=== PATIENT | female | born 1990 | race American Indian/Alaskan Native ===

== ENCOUNTER 2018-04-28 19:53 | Emergency (ER) | payer MEDICAID, OTHER ==
[2018-04-28 20:01] VITALS: BP 141/73
[2018-04-28] MEDS ORDERED: IBUPROFEN PO ONE (20:48)
--- NOTE | 2018-04-28 20:54 | Emergency Department Report ---
ED ENT HPI - General Chief complaint: Sore Throat Stated complaint: SORE THROAT Time Seen by Provider: 04/28/18 20:40 Source: patient Mode of arrival: Ambulatory Limitations: No Limitations - Related Data Home Medications Medication Instructions Recorded Confirmed Last Taken NIFEdipine*For Tocolysis only* 10 mg PO Q6HR 01/05/14 04/08/16 Unknown [Procardia] Progesterone, Micronized 200 mg VG QPM 01/05/14 04/08/16 Unknown [Prometrium] Previous Rx's Medication Instructions Recorded Last Taken Type Ferrous Sulfate [Feosol 325 MG tab] 325 mg PO TID #90 tablet 01/04/14 Unknown Rx Ibuprofen [Motrin 800 MG tab] 800 mg PO Q8H PRN #90 tablet 01/04/14 Unknown Rx oxyCODONE /ACETAMINOPHEN [Percocet 1 tab PO Q6HR PRN #30 tablet 01/04/14 Unknown Rx 5/325 mg] Multivitamin with Iron 1 each PO DAILY #30 tablet 04/08/16 Unknown Rx [Multivitamins with Iron] oxyCODONE /ACETAMINOPHEN [Percocet 1 tab PO Q6HR PRN #30 tablet 04/08/16 Unknown Rx 5/325] Clindamycin [Clindamycin CAP] 300 mg PO Q8H #30 cap 04/28/18 Unknown Rx Ibuprofen [Motrin 600 MG tab] 600 mg PO Q8H PRN #30 tablet 04/28/18 Unknown Rx Allergies Allergy/AdvReac Type Severity Reaction Status Date / Time apple [Apple] Allergy Itching Verified 12/10/13 10:58 Cephalosporins AdvReac Rash Verified 12/07/13 14:04 Penicillins AdvReac Rash Verified 12/07/13 14:04 ED Dental HPI - General Chief complaint: Sore Throat Stated complaint: SORE THROAT Time Seen by Provider: 04/28/18 20:40 Source: patient Mode of arrival: Ambulatory Limitations: No Limitations - Related Data Home Medications Medication Instructions Recorded Confirmed Last Taken NIFEdipine*For Tocolysis only* 10 mg PO Q6HR 01/05/14 04/08/16 Unknown [Procardia] Progesterone, Micronized 200 mg VG QPM 01/05/14 04/08/16 Unknown [Prometrium] Previous Rx's Medication Instructions Recorded Last Taken Type Ferrous Sulfate [Feosol 325 MG tab] 325 mg PO TID #90 tablet 01/04/14 Unknown Rx Ibuprofen [Motrin 800 MG tab] 800 mg PO Q8H PRN #90 tablet 01/04/14 Unknown Rx oxyCODONE /ACETAMINOPHEN [Percocet 1 tab PO Q6HR PRN #30 tablet 01/04/14 Unknown Rx 5/325 mg] Multivitamin with Iron 1 each PO DAILY #30 tablet 04/08/16 Unknown Rx [Multivitamins with Iron] oxyCODONE /ACETAMINOPHEN [Percocet 1 tab PO Q6HR PRN #30 tablet 04/08/16 Unknown Rx 5/325] Clindamycin [Clindamycin CAP] 300 mg PO Q8H #30 cap 04/28/18 Unknown Rx Ibuprofen [Motrin 600 MG tab] 600 mg PO Q8H PRN #30 tablet 04/28/18 Unknown Rx Allergies Allergy/AdvReac Type Severity Reaction Status Date / Time apple [Apple] Allergy Itching Verified 12/10/13 10:58 Cephalosporins AdvReac Rash Verified 12/07/13 14:04 Penicillins AdvReac Rash Verified 12/07/13 14:04 ED Review of Systems ROS: Stated complaint: SORE THROAT Other details as noted in HPI ED Past Medical Hx - Past Medical History Previous Medical History?: No Hx Hypertension: No Hx Heart Attack/AMI: No Hx Congestive Heart Failure: No Hx Diabetes: No Hx Deep Vein Thrombosis: No Hx Renal Disease: No Hx Sickle Cell Disease: No Hx Seizures: No Hx Asthma: No Hx COPD: No Hx HIV: No - Surgical History Past Surgical History?: Yes Additional Surgical History: x3 - Social History Smoking Status: Never Smoker Substance Use Type: None - Medications Home Medications: Home Medications Medication Instructions Recorded Confirmed Last Taken Type Ferrous Sulfate [Feosol 325 MG tab] 325 mg PO TID #90 tablet 01/04/14 04/08/16 Unknown Rx Ibuprofen [Motrin 800 MG tab] 800 mg PO Q8H PRN #90 tablet 01/04/14 04/08/16 Unknown Rx oxyCODONE /ACETAMINOPHEN [Percocet 1 tab PO Q6HR PRN #30 tablet 01/04/14 04/08/16 Unknown Rx 5/325 mg] NIFEdipine*For Tocolysis only* 10 mg PO Q6HR 01/05/14 04/08/16 Unknown History [Procardia] Progesterone, Micronized 200 mg VG QPM 01/05/14 04/08/16 Unknown History [Prometrium] Multivitamin with Iron 1 each PO DAILY #30 tablet 04/08/16 Unknown Rx [Multivitamins with Iron] oxyCODONE /ACETAMINOPHEN [Percocet 1 tab PO Q6HR PRN #30 tablet 04/08/16 Unknown Rx 5/325] Clindamycin [Clindamycin CAP] 300 mg PO Q8H #30 cap 04/28/18 Unknown Rx Ibuprofen [Motrin 600 MG tab] 600 mg PO Q8H PRN #30 tablet 04/28/18 Unknown Rx ED Physical Exam - General Limitations: No Limitations ED Course Vital Signs 04/28/18 19:59 Temperature 98.5 F Pulse Rate 95 H Respiratory 16 Rate Blood Pressure 141/73 O2 Sat by Pulse 96 Oximetry Critical care attestation.: If time is entered above; I have spent that time in minutes in the direct care of this critically ill patient, excluding procedure time. ED Disposition Clinical Impression: Pharyngitis Qualifiers: Pharyngitis/tonsillitis etiology: unspecified etiology Qualified Code(s): J02.9 - Acute pharyngitis, unspecified Disposition: DC- TO HOME OR SELFCARE Is pt being admited?: No Does the pt Need Aspirin: No Condition: Stable Instructions: Pharyngitis (ED) Additional Instructions: These complete antibiotics as prescribed. Pain medication as needed increase her fluid intake. Prescriptions: Clindamycin [Clindamycin CAP] 300 mg PO Q8H #30 cap Ibuprofen [Motrin 600 MG tab] 600 mg PO Q8H PRN #30 tablet PRN Reason: Pain Referrals: [facility] [Provider Group] - 3-5 Days Forms: Work/School Release Form(ED)
== END 2018-04-28 21:16 | disposition home or self-care (01) ==
LOC: ED 19:53
DX: J02.9 Acute pharyngitis, unspecified (principal)
CPT/HCPCS: 99282

== ENCOUNTER 2018-07-08 21:23 | Emergency (ER) | payer OTHER ==
[2018-07-08 21:41] VITALS: BP 131/84
[2018-07-08] MEDS ORDERED: NACL 0.9% 1000 ML 1,000 ML IV ONE (21:41)
--- NOTE | 2018-07-08 21:43 | Emergency Department Report ---
Chief Complaint: Nausea/Vomiting/Diarrhea Stated Complaint: VOMITING/CHILLS Time Seen by Provider: 07/08/18 21:39 - HPI History of Present Illness: This is a 27 y.o. female that presents with n/v and abdominal pain x 3 days. LMP 06/28/2018, A0. - ROS Review of Systems: nausea, vomiting, and abdominal pain - Exam Vital Signs: Vital Signs 07/08/18 21:38 Temperature 97.9 F Pulse Rate 72 Respiratory 16 Rate Blood Pressure 131/84 O2 Sat by Pulse 99 Oximetry MSE screening note: Focused history and physical exam performed. Due to findings the following was ordered: labs Fast track for further evaluation. ED Disposition for MSE Condition: Stable
[2018-07-08 22:10] LABS: Basophils # (Auto) 0.1 K/mm3 (0.0-0.1); Eosinophils # (Auto) 0.2 K/mm3 (0.0-0.4); Eosinophils % (Auto) 2.7 % (0.0-4.3); Hematocrit 34.5 % (30.3-42.9); Hemoglobin 11.5 gm/dl (10.1-14.3); Lymphocytes # (Auto) 3.2 K/mm3 (1.2-5.4); Lymphocytes % (Auto) 54.2 % (13.4-35.0); Mean Corpuscular HGB Conc 33 % (30-34); Mean Corpuscular Volume 83 fl (79-97); Monocytes # (Auto) 0.3 K/mm3 (0.0-0.8); Monocytes % (Auto) 5.7 % (0.0-7.3); Platelet Count 338 K/mm3 (140-440); Red Blood Count 4.14 M/mm3 (3.65-5.03); Red Cell Distribution Width 14.4 % (13.2-15.2)
[2018-07-08 22:21] LABS: Bilirubin,Urine NEG (Negative); Blood,Urine NEG (Negative); Color,Urine Yellow (Yellow); Mucus,Urine FEW /HPF; Protein,Urine <15 mg/dL mg/dL (Negative); Urobilinogen,Urine < 2.0 mg/dL (<2.0)
[2018-07-08 22:45] LABS: Alanine Aminotransferase 9 units/L (7-56); BUN/Creatinine Ratio 17; Blood Urea Nitrogen 12 mg/dL (7-17); Calcium 8.9 mg/dL (8.4-10.2); Hemolysis Index 73
--- NOTE | 2018-07-08 23:31 | Emergency Department Report ---
ED N/V/D HPI - General Chief complaint: Nausea/Vomiting/Diarrhea Stated complaint: VOMITING/CHILLS Time Seen by Provider: 07/08/18 21:39 Source: patient Mode of arrival: Ambulatory Limitations: No Limitations - History of Present Illness Initial comments: 27-year-old -[place] female presents to the emergency room for nausea vomiting and decreased appetite 2 days. Patient reports no sick contact last vomited at 6 PM. She reports she has some mild sharp pain is intermittent and she says is from her vomiting. Patient denies any abdominal pain denies any fever. Denies any dysuria or urinary frequency or urinary urgency no vaginal discharge or bleeding. MD complaint: nausea, vomiting -: days(s) (2) Description of Vomiting: food contents Associated Abdominal Pain: No Severity: mild Pain Scale: 0 Consistency: intermittent Improves with: none Worsens with: none Associated Symptoms: loss of appetite, nausea/vomiting. denies: chest pain, cough, fever/chills - Related Data Home Medications Medication Instructions Recorded Confirmed Last Taken NIFEdipine*For Tocolysis only* 10 mg PO Q6HR 01/05/14 04/08/16 Unknown [Procardia] Progesterone, Micronized 200 mg VG QPM 01/05/14 04/08/16 Unknown [Prometrium] Previous Rx's Medication Instructions Recorded Last Taken Type Ferrous Sulfate [Feosol 325 MG tab] 325 mg PO TID #90 tablet 01/04/14 Unknown Rx Ibuprofen [Motrin 800 MG tab] 800 mg PO Q8H PRN #90 tablet 01/04/14 Unknown Rx oxyCODONE /ACETAMINOPHEN [Percocet 1 tab PO Q6HR PRN #30 tablet 01/04/14 Unknown Rx 5/325 mg] Multivitamin with Iron 1 each PO DAILY #30 tablet 04/08/16 Unknown Rx [Multivitamins with Iron] oxyCODONE /ACETAMINOPHEN [Percocet 1 tab PO Q6HR PRN #30 tablet 04/08/16 Unknown Rx 5/325] Clindamycin [Clindamycin CAP] 300 mg PO Q8H #30 cap 04/28/18 Unknown Rx Ibuprofen [Motrin 600 MG tab] 600 mg PO Q8H PRN #30 tablet 04/28/18 Unknown Rx Allergies Allergy/AdvReac Type Severity Reaction Status Date / Time apple [Apple] Allergy Itching Verified 08/15/14 10:58 Cephalosporins AdvReac Rash Verified 12/07/13 14:04 Penicillins AdvReac Rash Verified 12/07/13 14:04 ED Review of Systems ROS: Stated complaint: VOMITING/CHILLS Other details as noted in HPI Comment: All other systems reviewed and negative Constitutional: denies: chills, fever Eyes: denies: eye pain, eye discharge, vision change ENT: denies: ear pain, throat pain Respiratory: denies: cough, shortness of breath, wheezing Cardiovascular: denies: chest pain, palpitations Gastrointestinal: nausea, vomiting Genitourinary: denies: urgency, dysuria, discharge Musculoskeletal: denies: back pain, joint swelling, arthralgia Skin: denies: rash, lesions Neurological: denies: headache, weakness, paresthesias ED Past Medical Hx - Past Medical History Hx Hypertension: No Hx Heart Attack/AMI: No Hx Congestive Heart Failure: No Hx Diabetes: No Hx Deep Vein Thrombosis: No Hx Renal Disease: No Hx Sickle Cell Disease: No Hx Seizures: No Hx Asthma: No Hx COPD: No Hx HIV: No - Surgical History Additional Surgical History: x3 - Social History Smoking Status: Never Smoker Substance Use Type: None - Medications Home Medications: Home Medications Medication Instructions Recorded Confirmed Last Taken Type Ferrous Sulfate [Feosol 325 MG tab] 325 mg PO TID #90 tablet 01/04/14 04/08/16 Unknown Rx Ibuprofen [Motrin 800 MG tab] 800 mg PO Q8H PRN #90 tablet 01/04/14 04/08/16 Unknown Rx oxyCODONE /ACETAMINOPHEN [Percocet 1 tab PO Q6HR PRN #30 tablet 01/04/14 04/08/16 Unknown Rx 5/325 mg] NIFEdipine*For Tocolysis only* 10 mg PO Q6HR 01/05/14 04/08/16 Unknown History [Procardia] Progesterone, Micronized 200 mg VG QPM 01/05/14 04/08/16 Unknown History [Prometrium] Multivitamin with Iron 1 each PO DAILY #30 tablet 04/08/16 Unknown Rx [Multivitamins with Iron] oxyCODONE /ACETAMINOPHEN [Percocet 1 tab PO Q6HR PRN #30 tablet 04/08/16 Unknown Rx 5/325] Clindamycin [Clindamycin CAP] 300 mg PO Q8H #30 cap 04/28/18 Unknown Rx Ibuprofen [Motrin 600 MG tab] 600 mg PO Q8H PRN #30 tablet 04/28/18 Unknown Rx ED Physical Exam - General Limitations: No Limitations General appearance: alert, in no apparent distress - Head Head exam: Present: atraumatic, normocephalic - Eye Eye exam: Present: normal appearance - ENT ENT exam: Present: mucous membranes moist - Neck Neck exam: Present: normal inspection - Respiratory Respiratory exam: Present: normal lung sounds bilaterally. Absent: respiratory distress - Cardiovascular Cardiovascular Exam: Present: regular rate, normal rhythm. Absent: systolic murmur, diastolic murmur, rubs, gallop - GI/Abdominal GI/Abdominal exam: Present: soft, normal bowel sounds - Extremities Exam Extremities exam: Present: normal inspection - Back Exam Back exam: Present: normal inspection - Neurological Exam Neurological exam: Present: alert, oriented X3 - Psychiatric Psychiatric exam: Present: normal affect, normal mood - Skin Skin exam: Present: warm, dry, intact, normal color. Absent: rash ED Course Vital Signs 07/08/18 21:38 Temperature 97.9 F Pulse Rate 72 Respiratory 16 Rate Blood Pressure 131/84 O2 Sat by Pulse 99 Oximetry - Reevaluation(s) Reevaluation #1: 07/09/18 00:33 Patient has been able to drink fluids without having nausea and vomiting during her ER visit. ED Medical Decision Making - Lab Data Result diagrams: 07/08/18 22:01 07/08/18 22:01 Laboratory Tests 07/08/18 07/08/18 07/08/18 21:51 22:01 22:01 WBC 5.8 RBC 4.14 Hgb 11.5 Hct 34.5 MCV 83 MCH 28 MCHC 33 RDW 14.4 Plt Count 338 Lymph % (Auto) 54.2 H [place] % (Auto) 5.7 Eos % (Auto) 2.7 Baso % (Auto) 1.0 Lymph # 3.2 [place] # 0.3 Eos # 0.2 Baso # 0.1 Seg Neutrophils % 36.4 L Seg Neutrophils # 2.1 Sodium 137 Potassium 4.6 Chloride 101.8 Carbon Dioxide 22 Anion Gap 18 BUN 12 Creatinine 0.7 Estimated GFR > 60 BUN/Creatinine Ratio 17 Glucose 91 Calcium 8.9 Total Bilirubin 0.20 AST 16 ALT 9 Alkaline Phosphatase 27 L Total Protein 7.2 Albumin 4.0 Albumin/Globulin Ratio 1.3 Lipase HCG, Qual Urine Color Yellow Urine Turbidity Clear Urine pH 5.0 Ur Specific [place] 1.030 Urine Protein <15 mg/dl Urine Glucose (UA) Neg Urine Ketones Neg Urine Blood Neg Urine Nitrite Neg Urine Bilirubin Neg Urine Urobilinogen < 2.0 Ur Leukocyte Esterase Neg Urine WBC (Auto) 4.0 Urine RBC (Auto) 4.0 U Epithel Cells (Auto) 1.0 Urine Mucus Few 07/08/18 07/08/18 22:01 22:01 WBC RBC Hgb Hct MCV MCH MCHC RDW Plt Count Lymph % (Auto) [place] % (Auto) Eos % (Auto) Baso % (Auto) Lymph # [place] # Eos # Baso # Seg Neutrophils % Seg Neutrophils # Sodium Potassium Chloride Carbon Dioxide Anion Gap BUN Creatinine Estimated GFR BUN/Creatinine Ratio Glucose Calcium Total Bilirubin AST ALT Alkaline Phosphatase Total Protein Albumin Albumin/Globulin Ratio Lipase 19 HCG, Qual Negative Urine Color Urine Turbidity Urine pH Ur Specific [place] Urine Protein Urine Glucose (UA) Urine Ketones Urine Blood Urine Nitrite Urine Bilirubin Urine Urobilinogen Ur Leukocyte Esterase Urine WBC (Auto) Urine RBC (Auto) U Epithel Cells (Auto) Urine Mucus - Medical Decision Making Patient has been evaluated by this provider in [facility]. Labs are within normal limits. Patient reports she has had no nausea and vomiting since being here in the e mergency room. Patient was able to complete a by mouth challenge without any nausea vomiting. Patient be discharged home instructions to increase her fluids and advance her diet as tolerated. Critical care attestation.: If time is entered above; I have spent that time in minutes in the direct care of this critically ill patient, excluding procedure time. ED Disposition Clinical Impression: Nausea and vomiting Qualifiers: Vomiting type: unspecified Vomiting Intractability: intractable Qualified Code(s): R11.2 - Nausea with vomiting, unspecified Disposition: DC-01 TO HOME OR SELFCARE Is pt being admited?: No Does the pt Need Aspirin: No Condition: Stable Instructions: Acute Nausea and Vomiting (ED) Additional Instructions: Continue with fluid intake and advance her diet as tolerated. If his symptoms persist or gets worse please follow back up in the emergency room and get primary care provider. Referrals: DON CHARLES MD [Primary Care Provider] - 3-5 Days Forms: Work/School Release Form(ED)
== END 2018-07-09 00:37 | disposition home or self-care (01) ==
LOC: ED 21:23
DX: R11.2 Nausea with vomiting, unspecified (principal); R63.0 Anorexia; Z79.899 Other long term (current) drug therapy; Z91.018 Allergy to other foods; Z88.0 Allergy status to penicillin; Z88.8 Allergy status to other drugs, medicaments and biological substances
CPT/HCPCS: 36415; 80053; 81001; 83690; 84703; 85025; 99283

== ENCOUNTER 2018-08-20 13:41 | Emergency (ER) | payer OTHER ==
--- NOTE | 2018-08-20 14:03 | Emergency Department Report ---
Blank Doc - Documentation Documentation: This is a 28-year-old female that presents with dizziness and light headiness. This initial assessment/diagnostic orders/clinical plan/treatment(s) is/are subject to change based on patient's health status, clinical progression and re- assessment by fellow clinical providers in the ED. Further treatment and workup at subsequent clinical providers discretion. Patient/guardians urged not to elope from the ED as their condition may be serious if not clinically assessed and managed. Initial orders include: 1- Patient sent to [facility] for further evaluation and treatment 2- labs 3- UA
[2018-08-20 14:21] LABS: Basophils % (Auto) 0.7 % (0.0-1.8); Eosinophils # (Auto) 0.1 K/mm3 (0.0-0.4); Eosinophils % (Auto) 1.8 % (0.0-4.3); Hematocrit 37.2 % (30.3-42.9); Hemoglobin 12.1 gm/dl (10.1-14.3); Lymphocytes # (Auto) 2.4 K/mm3 (1.2-5.4); Lymphocytes % (Auto) 40.7 % (13.4-35.0); Mean Corpuscular HGB Conc 33 % (30-34); Mean Corpuscular Volume 83 fl (79-97); Monocytes # (Auto) 0.5 K/mm3 (0.0-0.8); Monocytes % (Auto) 8.1 % (0.0-7.3); Platelet Count 304 K/mm3 (140-440); Red Blood Count 4.47 M/mm3 (3.65-5.03)
[2018-08-20 14:44] LABS: Alanine Aminotransferase 8 units/L (7-56); Albumin 4.4 g/dL (3.9-5); BUN/Creatinine Ratio 22; Blood Urea Nitrogen 13 mg/dL (7-17); Calcium 8.9 mg/dL (8.4-10.2); Hemolysis Index 2
[2018-08-20 14:49] LABS: Bilirubin,Direct < 0.2 mg/dL (0-0.2)
--- NOTE | 2018-08-20 15:44 | Emergency Department Report ---
ED Dizziness HPI - General Chief Complaint: Dizziness Stated Complaint: DIZZY/LIGHT HEADED/CONFUSION Time Seen by Provider: 08/20/18 14:02 Source: patient Mode of arrival: Ambulatory Limitations: No Limitations - History of Present Illness Initial Comments: Eveline is a 28 yo healthy female who presents with lightheadedness this morning. No headache no pain. Improves with rest, eating, hydration. Both parents have hx of diabetes. 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 Complaint: dizziness, lightheadedness -: Gradual Timing: gradual onset Description: lightheadedness History of Same: No Severity: mild Improves With: rest, other (eating, drinking) - Related Data Home Medications Medication Instructions Recorded Confirmed Last Taken NIFEdipine*For Tocolysis only* 10 mg PO Q6HR 01/05/14 04/08/16 Unknown [Procardia] Progesterone, Micronized 200 mg VG QPM 01/05/14 04/08/16 Unknown [Prometrium] Previous Rx's Medication Instructions Recorded Last Taken Type Ferrous Sulfate [Feosol 325 MG tab] 325 mg PO TID #90 tablet 01/04/14 Unknown Rx Ibuprofen [Motrin 800 MG tab] 800 mg PO Q8H PRN #90 tablet 01/04/14 Unknown Rx oxyCODONE /ACETAMINOPHEN [Percocet 1 tab PO Q6HR PRN #30 tablet 01/04/14 Unknown Rx 5/325 mg] Multivitamin with Iron 1 each PO DAILY #30 tablet 04/08/16 Unknown Rx [Multivitamins with Iron] oxyCODONE /ACETAMINOPHEN [Percocet 1 tab PO Q6HR PRN #30 tablet 04/08/16 Unknown Rx 5/325] Clindamycin [Clindamycin CAP] 300 mg PO Q8H #30 cap 04/28/18 Unknown Rx Ibuprofen [Motrin 600 MG tab] 600 mg PO Q8H PRN #30 tablet 04/28/18 Unknown Rx Allergies Allergy/AdvReac Type Severity Reaction Status Date / Time apple [Apple] Allergy Itching Verified 12/10/13 10:58 Cephalosporins AdvReac Rash Verified 12/07/13 14:04 Penicillins AdvReac Rash Verified 12/07/13 14:04 ED Review of Systems ROS: Stated complaint: DIZZY/LIGHT HEADED/CONFUSION Other details as noted in HPI Comment: All other systems reviewed and negative Constitutional: malaise Cardiovascular: denies: chest pain Endocrine: denies: flushing ED Past Medical Hx - Past Medical History Previous Medical History?: No Hx Hypertension: No Hx Heart Attack/AMI: No Hx Congestive Heart Failure: No Hx Diabetes: No Hx Deep Vein Thrombosis: No Hx Renal Disease: No Hx Sickle Cell Disease: No Hx Seizures: No Hx Asthma: No Hx COPD: No Hx HIV: No - Surgical History Past Surgical History?: Yes Additional Surgical History: x3 - Family History Family history: diabetes - Social History Smoking Status: Never Smoker Substance Use Type: None - Medications Home Medications: Home Medications Medication Instructions Recorded Confirmed Last Taken Type Ferrous Sulfate [Feosol 325 MG tab] 325 mg PO TID #90 tablet 01/04/14 04/08/16 Unknown Rx Ibuprofen [Motrin 800 MG tab] 800 mg PO Q8H PRN #90 tablet 01/04/14 04/08/16 Unknown Rx oxyCODONE /ACETAMINOPHEN [Percocet 1 tab PO Q6HR PRN #30 tablet 01/04/14 04/08/16 Unknown Rx 5/325 mg] NIFEdipine*For Tocolysis only* 10 mg PO Q6HR 01/05/14 04/08/16 Unknown History [Procardia] Progesterone, Micronized 200 mg VG QPM 01/05/14 04/08/16 Unknown History [Prometrium] Multivitamin with Iron 1 each PO DAILY #30 tablet 04/08/16 Unknown Rx [Multivitamins with Iron] oxyCODONE /ACETAMINOPHEN [Percocet 1 tab PO Q6HR PRN #30 tablet 04/08/16 Unknown Rx 5/325] Clindamycin [Clindamycin CAP] 300 mg PO Q8H #30 cap 04/28/18 Unknown Rx Ibuprofen [Motrin 600 MG tab] 600 mg PO Q8H PRN #30 tablet 04/28/18 Unknown Rx ED Physical Exam - General Limitations: No Limitations General appearance: alert, in no apparent distress - Head Head exam: Present: atraumatic, normocephalic - Eye Eye exam: Present: normal appearance - ENT ENT exam: Present: mucous membranes moist - Neck Neck exam: Present: normal inspection, full ROM - Respiratory Respiratory exam: Present: normal lung sounds bilaterally. Absent: respiratory distress, wheezes, rales, rhonchi - Cardiovascular Cardiovascular Exam: Present: regular rate, normal rhythm, normal heart sounds. Absent: systolic murmur, diastolic murmur, rubs, gallop - GI/Abdominal GI/Abdominal exam: Present: soft, normal bowel sounds. Absent: distended, tende rness, guarding, rebound - Extremities Exam Extremities exam: Present: normal inspection - Back Exam Back exam: Present: normal inspection - Neurological Exam Neurological exam: Present: alert, oriented X3 - Psychiatric Psychiatric exam: Present: normal affect, normal mood - Skin Skin exam: Present: warm, dry, intact, normal color. Absent: rash ED Medical Decision Making - Lab Data Result diagrams: 08/20/18 14:13 08/20/18 14:13 Laboratory Results - last 24 hr 08/20/18 08/20/18 08/20/18 14:13 14:13 14:13 WBC 5.8 RBC 4.47 Hgb 12.1 Hct 37.2 MCV 83 MCH 27 L MCHC 33 RDW 14.0 Plt Count 304 Lymph % (Auto) 40.7 H [place] % (Auto) 8.1 H Eos % (Auto) 1.8 Baso % (Auto) 0.7 Lymph # 2.4 [place] # 0.5 Eos # 0.1 Baso # 0.0 Seg Neutrophils % 48.7 Seg Neutrophils # 2.8 Sodium 144 Potassium 4.1 Chloride 109.5 H Carbon Dioxide 26 Anion Gap 13 BUN 13 Creatinine 0.6 L Estimated GFR > 60 BUN/Creatinine Ratio 22 Glucose 91 Calcium 8.9 Total Bilirubin 0.50 Direct Bilirubin < 0.2 Indirect Bilirubin 0.3 AST 11 ALT 8 Alkaline Phosphatase 31 L Total Protein 7.7 Albumin 4.4 Albumin/Globulin Ratio 1.3 HCG, Qual Negative - Medical Decision Making Labs reviewed, no indication of anemia, hyperglycemia, MICKI or Neurologically intact, intracranial process such as CVA or pseudotumor cerebri on likely Recommended outpatient evaluation by primary care physician. No evidence of acute emergent condition. Critical care attestation.: If time is entered above; I have spent that time in minutes in the direct care of this critically ill patient, excluding procedure time. ED Disposition Clinical Impression: Lightheadedness Disposition: DC-01 TO HOME OR SELFCARE Is pt being admited?: No Does the pt Need Aspirin: No Condition: Stable Instructions: Lightheadedness (ED) Referrals: [facility] [Outside] - 3-5 Days
[2018-08-20 15:50] VITALS: BP 117/71
== END 2018-08-20 15:53 | disposition home or self-care (01) ==
LOC: ED 13:41
DX: R42 Dizziness and giddiness (principal); Z88.1 Allergy status to other antibiotic agents; Z88.0 Allergy status to penicillin; Z91.018 Allergy to other foods
CPT/HCPCS: 36415; 80048; 80076; 84703; 85025; 99283

== ENCOUNTER 2018-11-20 23:17 | Emergency (ER) | payer OTHER ==
[2018-11-20 23:40] VITALS: BP 144/79
--- NOTE | 2018-11-21 01:14 | Cat Scan Report ---
CT head/brain wo con INDICATION / CLINICAL INFORMATION: headache, trauma and loc. TECHNIQUE: All CT scans at this location are performed using CT dose reduction for ALARA by means of automated e xposure control. COMPARISON: None available. FINDINGS: Ventricle size is normal. No mass or mass effect is seen. There is no evidence of intracranial hemorr apollo. No obvious area of infarction is identified. Visualized paranasal sinuses are clear. No fractur e is seen. IMPRESSION: No acute findings Signer Name: Crispin Hill MD FACR Signed: 11/21/2018 1:10 AM Workstation Name: [id number]
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
== END 2018-11-21 01:40 | disposition home or self-care (01) ==
LOC: ED 23:17
DX: S09.90XA Unspecified injury of head, initial encounter (principal); Z79.899 Other long term (current) drug therapy; Z88.1 Allergy status to other antibiotic agents; Z88.0 Allergy status to penicillin; Z91.018 Allergy to other foods; V49.9XXA Car occupant (driver) (passenger) injured in unspecified traffic accident, initial encounter; Y93.89 Activity, other specified; Y92.410 Unspecified street and highway as the place of occurrence of the external cause; Y99.8 Other external cause status
CPT/HCPCS: 70450

== ENCOUNTER 2018-11-22 21:17 | Emergency (ER) | payer OTHER ==
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
[2018-11-22 21:28] VITALS: BP 124/73
--- NOTE | 2018-11-22 22:05 | XRay Report ---
HISTORY: Right hand pain COMPARISON: None. TECHNIQUE: AP, lateral and both obliques FINDINGS: Bones: Fracture of the distal phalanx first digit is present with slight displacement.. Joint spaces: Maintained. Soft tissues: No significant abnormality. Additional findings: None. IMPRESSION: 1. Fracture first digit right hand involving the distal phalanx.. Signer Name: Jai Kelly MD Signed: 11/22/2018 10:01 PM Workstation Name: [id number]
[2018-11-22] MEDS ORDERED: NORCO 5/325 PO STA (23:36)
--- NOTE | 2018-11-22 23:45 | Emergency Department Report ---
Upper Extremity - HPI Chief Complaint: Extremity Injury, Upper Stated Complaint: RIGHT HAND SWOLLEN Time Seen by Provider: 11/22/18 21:26 ED Review of Systems ROS: Stated complaint: RIGHT HAND SWOLLEN Other details as noted in HPI ED Past Medical Hx - Past Medical History Previous Medical History?: No Hx Hypertension: No Hx Heart Attack/AMI: No Hx Congestive Heart Failure: No Hx Diabetes: No Hx Deep Vein Thrombosis: No Hx Renal Disease: No Hx Sickle Cell Disease: No Hx Seizures: No Hx Asthma: No Hx COPD: No Hx HIV: No - Surgical History Past Surgical History?: Yes Additional Surgical History: x3 - Social History Smoking Status: Never Smoker Substance Use Type: None - Medications Home Medications: Home Medications Medication Instructions Recorded Confirmed Last Taken Type Ferrous Sulfate [Feosol 325 MG tab] 325 mg PO TID #90 tablet 01/04/14 04/08/16 Unknown Rx Ibuprofen [Motrin 800 MG tab] 800 mg PO Q8H PRN #90 tablet 01/04/14 04/08/16 Unknown Rx oxyCODONE /ACETAMINOPHEN [Percocet 1 tab PO Q6HR PRN #30 tablet 01/04/14 04/08/16 Unknown Rx 5/325 mg] NIFEdipine*For Tocolysis only* 10 mg PO Q6HR 01/05/14 04/08/16 Unknown History [Procardia] Progesterone, Micronized 200 mg VG QPM 01/05/14 04/08/16 Unknown History [Prometrium] Multivitamin with Iron 1 each PO DAILY #30 tablet 04/08/16 Unknown Rx [Multivitamins with Iron] oxyCODONE /ACETAMINOPHEN [Percocet 1 tab PO Q6HR PRN #30 tablet 04/08/16 Unknown Rx 5/325] Clindamycin [Clindamycin CAP] 300 mg PO Q8H #30 cap 04/28/18 Unknown Rx Ibuprofen [Motrin 600 MG tab] 600 mg PO Q8H PRN #30 tablet 04/28/18 Unknown Rx Ketorolac [Toradol] 10 mg PO Q6H PRN #15 tablet 11/21/18 Unknown Rx methOCARBAMOL [Robaxin] 750 mg PO Q8H PRN #21 tablet 11/21/18 Unknown Rx Acetaminophen/Codeine [Tylenol 1 tab PO Q6H PRN #10 tab 11/22/18 Unknown Rx /Codeine # 3 tab] Upper Extremity Exam - Exam General: Vital signs noted. No distress. Alert and acting appropriately. ED Course Vital Signs 11/22/18 21:26 Temperature 98.5 F Pulse Rate 95 H Respiratory 18 Rate Blood Pressure 124/73 O2 Sat by Pulse 98 Oximetry Critical care attestation.: If time is entered above; I have spent that time in minutes in the direct care of this critically ill patient, excluding procedure time. ED Disposition Disposition: DC-01 TO HOME OR SELFCARE Condition: Stable Instructions: Finger Fracture (ED) Prescriptions: Acetaminophen/Codeine [Tylenol /Codeine # 3 tab] 1 tab PO Q6H PRN #10 tab PRN Reason: finger pain Referrals: [facility] JEFFERS MD [Staff Physician] - 3-5 Days
== END 2018-11-23 00:17 | disposition home or self-care (01) ==
LOC: ED 21:17
DX: S62.521A Displaced fracture of distal phalanx of right thumb, initial encounter for closed fracture (principal); V89.2XXA Person injured in unspecified motor-vehicle accident, traffic, initial encounter; Y93.89 Activity, other specified; Y92.488 Other paved roadways as the place of occurrence of the external cause; Y99.8 Other external cause status
CPT/HCPCS: 99283

== ENCOUNTER 2019-05-07 20:19 | Emergency (ER) | payer OTHER ==
[2019-05-07 22:12] VITALS: BP 127/74
--- NOTE | 2019-05-07 22:14 | Event Note ---
ED Screening Note Date of service: 05/07/19 Time: 22:09 ED Screening Note: 28 y/o female comes for SOB and cough with chest pain with cough body aches. No fevers. Taking OTC robitussin. Temp 100.9 at time of exam. This initial assessment/diagnostic orders/clinical plan/treatment(s) is/are sub ject to change based on patients health status, clinical progression and re- assessment by fellow clinical providers in the ED. Further treatment and workup at subsequent clinical providers discretion. Patient/guardian urged not to elope from the ED as their condition may be serious if not clinically assessed and managed. Initial orders include: CXR
--- NOTE | 2019-05-07 22:45 | XRay Report ---
CHEST 2 VIEWS INDICATION / CLINICAL INFORMATION: sob,cough and rales. COMPARISON: None available. FINDINGS: SUPPORT DEVICES: None. HEART / MEDIASTINUM: No significant abnormality. LUNGS / PLEURA: There is mild bibasilar parenchymal disease, slightly more prominent on the right. It is difficult to determine whether this is atelectasis or pneumonia. Upper lung snow are clear. No visible pleural effusion or interstitial pulmonary edema. No pneumothorax. ADDITIONAL FINDINGS: No significant additional findings. IMPRESSION: 1. Mild bibasilar parenchymal disease. This could represent pneumonia and clinical follow-up is recom mended. Signer Name: Kitty Lott MD Signed: 05/07/2019 10:41 PM Workstation Name: [id number]
--- NOTE | 2019-05-08 00:18 | Emergency Department Report ---
- General Chief Complaint: Upper Respiratory Infection Stated Complaint: SOB/FEVER/COLD SX Time Seen by Provider: 05/07/19 22:09 Source: patient Mode of arrival: Ambulatory Limitations: No Limitations - History of Present Illness Initial Comments: Patient is a 28-year-old female who is presenting with a cough and congestion for approximately 2 weeks. Patient has had some mild shortness of breath. MAXIMUM TEMPERATURE at home was 102. Patient states that she has some chest discomfort with a cough. Cough is productive of yellow sputum. Patient denies nausea vomiting and diarrhea next stiffness or headache. Patient also states is no body aches. - Related Data Home Medications Medication Instructions Recorded Confirmed Last Taken NIFEdipine*For Tocolysis only* 10 mg PO Q6HR 01/05/14 04/08/16 Unknown [Procardia] Progesterone, Micronized 200 mg VG QPM 01/05/14 04/08/16 Unknown [Prometrium] Previous Rx's Medication Instructions Recorded Last Taken Type Ferrous Sulfate [Feosol 325 MG tab] 325 mg PO TID #90 tablet 01/04/14 Unknown Rx Ibuprofen [Motrin 800 MG tab] 800 mg PO Q8H PRN #90 tablet 01/04/14 Unknown Rx oxyCODONE /ACETAMINOPHEN [Percocet 1 tab PO Q6HR PRN #30 tablet 01/04/14 Unknown Rx 5/325 mg] Multivitamin with Iron 1 each PO DAILY #30 tablet 04/08/16 Unknown Rx [Multivitamins with Iron] oxyCODONE /ACETAMINOPHEN [Percocet 1 tab PO Q6HR PRN #30 tablet 04/08/16 Unknown Rx 5/325] Clindamycin [Clindamycin CAP] 300 mg PO Q8H #30 cap 04/28/18 Unknown Rx Ibuprofen [Motrin 600 MG tab] 600 mg PO Q8H PRN #30 tablet 04/28/18 Unknown Rx Ketorolac [Toradol] 10 mg PO Q6H PRN #15 tablet 11/21/18 Unknown Rx methOCARBAMOL [Robaxin] 750 mg PO Q8H PRN #21 tablet 11/21/18 Unknown Rx Acetaminophen/Codeine [Tylenol 1 tab PO Q6H PRN #10 tab 11/22/18 Unknown Rx /Codeine # 3 tab] Albuterol INH(or & Nicu Only) 2 puff IH QID PRN #1 inhalation 05/08/19 Unknown Rx [ProAir HFA Inhaler] Benzonatate [Tessalon Perles] 100 mg PO Q8HR #10 capsule 05/08/19 Unknown Rx DOXYCYCLINE Hyclate [Vibramycin 100 mg PO Q12HR #20 capsule 05/08/19 Unknown Rx CAP] Fluticasone [Flonase] 1 spray NS QDAY #1 bottle 05/08/19 Unknown Rx predniSONE [Deltasone] 20 mg PO QDAY #5 tab 05/08/19 Unknown Rx Allergies Allergy/AdvReac Type Severity Reaction Status Date / Time apple [Apple] Allergy Itching Verified 12/10/13 10:58 clindamycin Allergy Itching Verified 11/20/18 23:25 Cephalosporins AdvReac Rash Verified 12/07/13 14:04 Penicillins AdvReac Rash Verified 12/07/13 14:04 ED Review of Systems ROS: Stated complaint: SOB/FEVER/COLD SX Other details as noted in HPI Comment: All other systems reviewed and negative ED Past Medical Hx - Past Medical History Previous Medical History?: No Hx Hypertension: No Hx Heart Attack/AMI: No Hx Congestive Heart Failure: No Hx Diabetes: No Hx Deep Vein Thrombosis: No Hx Renal Disease: No Hx Sickle Cell Disease: No Hx Seizures: No Hx Asthma: No Hx COPD: No Hx HIV: No - Surgical History Past Surgical History?: Yes Additional Surgical History: x3 - Social History Smoking Status: Never Smoker Substance Use Type: None - Medications Home Medications: Home Medications Medication Instructions Recorded Confirmed Last Taken Type Ferrous Sulfate [Feosol 325 MG tab] 325 mg PO TID #90 tablet 01/04/14 04/08/16 Unknown Rx Ibuprofen [Motrin 800 MG tab] 800 mg PO Q8H PRN #90 tablet 01/04/14 04/08/16 Unknown Rx oxyCODONE /ACETAMINOPHEN [Percocet 1 tab PO Q6HR PRN #30 tablet 01/04/14 04/08/16 Unknown Rx 5/325 mg] NIFEdipine*For Tocolysis only* 10 mg PO Q6HR 01/05/14 04/08/16 Unknown History [Procardia] Progesterone, Micronized 200 mg VG QPM 01/05/14 04/08/16 Unknown History [Prometrium] Multivitamin with Iron 1 each PO DAILY #30 tablet 04/08/16 Unknown Rx [Multivitamins with Iron] oxyCODONE /ACETAMINOPHEN [Percocet 1 tab PO Q6HR PRN #30 tablet 04/08/16 Unknown Rx 5/325] Clindamycin [Clindamycin CAP] 300 mg PO Q8H #30 cap 04/28/18 Unknown Rx Ibuprofen [Motrin 600 MG tab] 600 mg PO Q8H PRN #30 tablet 04/28/18 Unknown Rx Ketorolac [Toradol] 10 mg PO Q6H PRN #15 tablet 11/21/18 Unknown Rx methOCARBAMOL [Robaxin] 750 mg PO Q8H PRN #21 tablet 11/21/18 Unknown Rx Acetaminophen/Codeine [Tylenol 1 tab PO Q6H PRN #10 tab 11/22/18 Unknown Rx /Codeine # 3 tab] Albuterol INH(or & Nicu Only) 2 puff IH QID PRN #1 inhalation 05/08/19 Unknown Rx [ProAir HFA Inhaler] Benzonatate [Tessalon Perles] 100 mg PO Q8HR #10 capsule 05/08/19 Unknown Rx DOXYCYCLINE Hyclate [Vibramycin 100 mg PO Q12HR #20 capsule 05/08/19 Unknown Rx CAP] Fluticasone [Flonase] 1 spray NS QDAY #1 bottle 05/08/19 Unknown Rx predniSONE [Deltasone] 20 mg PO QDAY #5 tab 05/08/19 Unknown Rx ED Physical Exam - General Limitations: No Limitations General appearance: alert, in no apparent distress - Head Head exam: Present: atraumatic, normocephalic - Eye Eye exam: Present: normal appearance. Absent: PERRL, EOMI - ENT ENT exam: Present: mucous membranes moist - Neck Neck exam: Present: normal inspection - Respiratory Respiratory exam: Present: normal lung sounds bilaterally. Absent: respiratory distress, wheezes, rales, rhonchi - Cardiovascular Cardiovascular Exam: Present: normal rhythm, tachycardia, normal heart sounds. Absent: systolic murmur, diastolic murmur, rubs, gallop - GI/Abdominal GI/Abdominal exam: Present: soft, normal bowel sounds. Absent: distended, tenderness, guarding, rebound - Extremities Exam Extremities exam: Present: normal inspection - Back Exam Back exam: Present: normal inspection - Neurological Exam Neurological exam: Present: alert, oriented X3 - Psychiatric Psychiatric exam: Present: normal affect, normal mood - Skin Skin exam: Present: warm, dry, intact, normal color. Absent: rash ED Course Vital Signs 05/07/19 05/07/19 05/07/19 20:35 22:12 22:14 Temperature 102.3 F H 100.9 F H Pulse Rate 117 H 105 H Respiratory 20 Rate Blood Pressure 127/74 O2 Sat by Pulse 96 Oximetry ED Medical Decision Making - Radiology Data Patient: GABRIEL HERNANDEZ MR#: [id number] : 1990 Acct:[id number] Age/Sex: 28 / F ADM Date: 05/07/19 Loc: ED Attending Dr: Ordering Physician: AFIA SANCHEZ Date of Service: 05/07/19 Procedure(s): XR chest routine 2V Accession Number(s): [id number] cc: AFIA SANCHEZ Fluoro Time In Minutes: CHEST 2 VIEWS INDICATION / CLINICAL INFORMATION: sob,cough and rales. COMPARISON: None available. FINDINGS: SUPPORT DEVICES: None. HEART / MEDIASTINUM: No significant abnormality. LUNGS / PLEURA: There is mild bibasilar parenchymal disease, slightly more prominent on the right. It is difficult to determine whether this is atelectasis or pneumonia. Upper lung snow are clear. No visible pleural effusion or interstitial pulmonary edema. No pneumothorax. ADDITIONAL FINDINGS: No significant additional findings. IMPRESSION: 1. Mild bibasilar parenchymal disease. This could represent pneumonia and clinical follow-up is recommended. Signer Name: Kitty Lott MD Signed: 05/07/2019 10:41 PM Workstation Name: [id number] - Medical Decision Making Patient is a 28-year-old Female who presented with 2 weeks of a productive cough with fever. Chest x-ray is consistent with a pneumonia the bilateral lower lobes right greater than left. Patient be started on doxycycline as well as medication for symptomatic relief and should be discharged home. Critical care attestation.: If time is entered above; I have spent that time in minutes in the direct care of this critically ill patient, excluding procedure time. ED Disposition Clinical Impression: Pneumonia Qualifiers: Pneumonia type: due to unspecified organism Laterality: bilateral Lung location: lower lobe of lung Qualified Code(s): J18.9 - Pneumonia, unspecified organism Disposition: - TO HOME OR SELFCARE Is pt being admited?: No Does the pt Need Aspirin: No Condition: Stable Instructions: Bacterial Pneumonia (ED) Referrals: PRIMARY CARE, [Primary Care Provider] - 3-5 Days Time of Disposition: 00:17
== END 2019-05-08 00:53 | disposition home or self-care (01) ==
LOC: ED 20:19
DX: J18.9 Pneumonia, unspecified organism (principal); Z98.890 Other specified postprocedural states; Z79.1 Long term (current) use of non-steroidal anti-inflammatories (NSAID); Z79.899 Other long term (current) drug therapy
CPT/HCPCS: 71046

== ENCOUNTER 2020-10-25 09:59 | Outpatient (CLI) | payer OTHER ==
--- NOTE | 2020-10-25 12:15 | Ultrasound Report ---
ULTRASOUND BREAST LEFT LIMITED, 10/25/2020 CLINICAL INFORMATION / INDICATION: Patient states she has a left breast lump and pain, but does feel like the palpable lump has decreased in size recently. TECHNIQUE: Targeted ultrasound evaluation was performed of the area of interest. COMPARISON: None FINDINGS: Sonographic evaluation of the left breast in the area of the pain and palpable lump which corresponds to the 11-12:00 location within the breast, is unremarkable. There is no suggestion of mass, cyst, o r suspicious area of shadowing. IMPRESSION: No sonographic evidence of malignancy in the left breast in the area of the palpable lump and pain. Please correlate clinically. If there is strong clinical concern, a diagnostic left mammog soraya can be performed. Follow up recommendation: Clinical correlation BI-RADS Category 2: Benign. A normal or "negative" report should not preclude biopsy or follow-up of a clinically suspicious find ing. Signer Name: Kitty Lott MD Signed: 10/25/2020 12:11 PM Workstation Name: [id number]
== END 2020-10-25 10:00 | disposition home or self-care (01) ==
LOC: US 09:59
DX: N63.20 Unspecified lump in the left breast, unspecified quadrant (principal); R60.9 Edema, unspecified; R92.8 Other abnormal and inconclusive findings on diagnostic imaging of breast